=== PATIENT | female | born 1985 | race Caucasian/White ===

== ENCOUNTER 2020-06-07 14:24 | Emergency (ER) | payer BC, SELFPAY ==
[2020-06-07 15:23] VITALS: BP 133/81; PULSE 76; RESP 18; TEMP 36.8; O2SAT 100; BMI 32.2
--- NOTE | 2020-06-07 17:17 | ED.EYEPROB ---
HPI - Eye Problem General Chief complaint: Eye Problems Stated complaint: EYE ISSUE Time Seen by Provider: 06/07/20 17:04 Source: patient Mode of arrival: ambulatory History of Present Illness HPI Narrative: 35yo Female with no significant past medical history presenting to the ED c/o left eye erythema, pain, and drainage since last night. Admits to associated blurry vision. Denies known trauma/injury, or known foreign body. States [id number] was using spray paint down stairs and there is crack in wall so may or may not have gotten into eye. Denies visual loss, or contact use. Reports irrigated multiple times at home without relief chief complaint: eye pain and eye redness Related Data Previous Rx's Medication Instructions Recorded polymyxin B sulf-trimethoprim 1 drp OPHTHALMIC (EYE) QID 5 Days 06/07/20 [Polytrim] #10 ml Allergies Allergy/AdvReac Type Severity Reaction Status Date / Time No Known Allergies Allergy Verified 06/07/20 15:22 Review of Systems Review of Systems: Constitutional: No Weight loss, No Fever, No Chills Eyes: + Eye Pain, No Swelling, + Redness, No Foreign Body, + Discharge, + Vision Changes ENT/Mouth: No Nasal Congestion, No Sinus Pain,No sore throat, No Rhinorrhea Skin: No Skin Lesions, No rash Yes all other systems are reviewed and are negative Eyes: Eyes: Reports photophobia PMFSH Past Medical History Attestation statement: The following information was validated with the patient. Medical History (Updated 06/07/20 @ 17:51 by TODD Houser) No active medical problems Social History Social History Smoked in Last 30 Days: No Use of substances other than those prescribed or required for medical reasons: No Advance Directives: No Advance Directives Information Provided: No Physical Exam Vital Signs: Vital Signs: Last Vital Signs Temp 98.2 F 06/07/20 15:23 Pulse 76 06/07/20 15:23 Resp 18 06/07/20 15:23 BP 133/81 06/07/20 15:23 Pulse Ox 100 06/07/20 15:23 Body Mass Index 32.2 Const: General: cooperative and healthy appearing Orientation/consciousness: patient oriented x3 Limitations: no limitations HENMT: Head: Yes normal to inspection Ears: hearing grossly normal bilaterally General nose exam: Normal external nose present Face and sinus: Yes normal facial exam Eyes: Other: Visual acuity 20/70 with corrective lenses right eye. 20/15 with corrective lens left eye Small white foreign body removed with Q-tip from left eye. General: appearance normal, both eyes and all related structures Periorbital: periorbital findings normal Eyelids: Yes eyelids normal Conjunctivae: other (Injected. Slight green drainage) Corneas: corneas abnormal (+ centralized corneal abrasion noted on pupil) on the left and fluorescein used Pupils: Equal, round and reactive pupils present EOM: EOMs intact bilaterally Direct Ophthalmoscopy: photophobia Neck: Neck: Yes normal visual inspection and Yes no meningeal signs Resp: Effort & Inspection: normal respiratory effort Cardio: Rate: regular rate Skin: Rashes: no rashes Wounds: no wounds Neuro: General: patient oriented x3 and no meningeal signs Cranial nerves: Yes Equal, round and reactive pupils present Gait exam (Neuro): Normal gait present Extrem: General: Yes normal to inspection MDM - Eye Problem MDM Narrative Medical decision making narrative: On exam VSS, NAD/well-appearing fluorescein stain used with appreciable left-sided corneal abrasion. Pain resolved after tetracaine drops. Foreign body removed with Q-tip. Exam consistent with corneal abrasion/foreign body and ? Bacterial conjunctivitis Lower concern for allergic conjunctivitis/ chemical irritative conjunctivitis Discharge Plan Discharge Clinical Impression: Corneal abrasion Qualifiers: Encounter type: initial encounter Laterality: left Qualified Code(s): S05.02XA - Injury of conjunctiva and corneal abrasion without foreign body, left eye, initial encounter Patient Disposition: Home, Self-Care Instructions: Corneal Abrasion (ED) Additional Instructions: You have a scratch in her eye. Polytrim eyedrops are antibiotic drops, take as prescribed. You need to see an shoes hand sewer on Wednesday. If her symptoms persist or worsen, pain becomes unbearable, have any visual loss/worsening or new visual change return to the ED immediately Prescriptions: New polymyxin B sulf-trimethoprim [Polytrim] 10,000 unit- 1 mg/mL drops 1 drp ophthalmic (eye) QID 5 Days Qty: 10 RF: 0 Referrals: Nahun Cavazos [Physician] - 2 days Discharge Date/Time: 06/07/20 18:11
[2020-06-07] MEDS: Fluorescein Sodium STRIP 1 STRIP EYE-LEFT (17:30)
[2020-06-07] MEDS: Tetracaine HCl/PF 0.5% Oph Sol 4 ML DROPS 2 DROP EYE-LEFT (17:30)
== END 2020-06-07 18:11 | disposition home or self-care (01) ==
PROVIDERS: Emergency Provider Internal Medicine; PCP Physician Assistant Medical
DX: S05.02XA Injury of conjunctiva and corneal abrasion without foreign body, left eye, initial encounter (principal); X58.XXXA Exposure to other specified factors, initial encounter; Y93.9 Activity, unspecified; Y92.9 Unspecified place or not applicable; Y99.9 Unspecified external cause status
CPT/HCPCS: 99283

== ENCOUNTER 2020-06-08 08:16 | Emergency (ER) | payer BC, SELFPAY ==
[2020-06-08 08:19] VITALS: BP 122/75; PULSE 80; RESP 16; TEMP 36.8; O2SAT 100; BMI 32.2
--- NOTE | 2020-06-08 08:57 | ED.EYEPROB ---
HPI - Eye Problem General Chief complaint: Eye Problems Stated complaint: EYE ISSUE Time Seen by Provider: 06/08/20 08:56 Source: patient Mode of arrival: ambulatory Limitations: no limitations History of Present Illness MD chief complaint: eye pain and eye injury Onset (ago): day(s) (1) Onset description: sudden Duration: constant Location: left eye Eye Symptoms: burning, redness, pain and foreign body sensation Place: home Mechanism: direct trauma (wiped with wash cloth) Severity: moderate If Pain, Quality: sharp and burning Associated symptoms: none Treatments Prior to Arrival: other (just seen and dx with abrasion started on polymyxin drops without relief, feels there is FB in left lower part of eye) Related Data Previous Rx's Medication Instructions Recorded polymyxin B sulf-trimethoprim 1 drp OPHTHALMIC (EYE) QID 5 Days 06/07/20 [Polytrim] #10 ml erythromycin 0.5 inch OPHTHALMIC (EYE) TID 7 06/08/20 Days #3.5 g hydrocodone-acetaminophen 1 tab PO Q6H PRN #12 tab 06/08/20 Allergies Allergy/AdvReac Type Severity Reaction Status Date / Time No Known Allergies Allergy Verified 06/07/20 15:22 Review of Systems Review of Systems: Constitutional : No Fever, No Chills, ENT/Mouth : No sore throat, No Rhinorrhea Eyes: pos Eye Pain, No Swelling, pos Redness Cardiovascular : No Chest Pain, No SOB Respiratory : No Cough, No Sputum, No Wheezing PMFSH Past Medical History Attestation statement: The following information was validated with the patient. Medical History No active medical problems Social History Social History (Updated 06/08/20 @ 09:14 by Olga Miller DO) Smoking Status: Never smoker Physical Exam Vital Signs: Vital Signs: Last Vital Signs Temp 98.2 F 06/08/20 08:19 Pulse 80 06/08/20 08:19 Resp 16 06/08/20 08:19 BP 122/75 06/08/20 08:19 Pulse Ox 100 06/08/20 08:19 Body Mass Index 32.2 Appearance: Alert. Oriented X3. No acute distress. Eyes: Pupils equal, round and reactive to light. mild photophobia, L eye under tetracaine and fluorescein two large corneal abrasions superficial without FB one at 9 o clock and some overlying of pupil, one on left lower cornea no FB seen, no ciliary flush ENT: Pharynx normal. Neck: Normal inspection. Neck supple. CVS: Normal heart rate and rhythm. Pulses normal. Respiratory: No respiratory distress. Breath sounds normal. Abdomen: Soft and nontender. Skin: Skin warm and dry. Normal skin color. Normal skin turgor. Extremities: No lower extremity edema. No calf ttp Neuro: Oriented X 3. No motor deficit. No sensory deficit. MDM - Eye Problem MDM Narrative Medical decision making narrative: 35 yo female does not wear contacts here with L eye pain - due to wiping eye with face cloth, no FB seen has two large corneal abrasions on exam - will start on ointment and PO pain medications, refer to eye doctor Discharge Plan Discharge Clinical Impression: Corneal abrasion Qualifiers: Encounter type: initial encounter Laterality: left Qualified Code(s): S05.02XA - Injury of conjunctiva and corneal abrasion without foreign body, left eye, initial encounter Patient Disposition: Home, Self-Care Instructions: Corneal Abrasion (ED) Additional Instructions: return to ED for any worsening symptoms or concerns two abrasions were noted on exam SEE YOUR EYE DOCTOR THIS WEEK stop the polymyxin Prescriptions: New erythromycin 5 mg/gram (0.5 %) ointment 0.5 inch ophthalmic (eye) TID 7 Days Qty: 3.5 RF: 0 hydrocodone-acetaminophen 5-325 mg tablet 1 tab PO Q6H PRN (Reason: pain) Qty: 12 RF: 0 No Action polymyxin B sulf-trimethoprim [Polytrim] 10,000 unit- 1 mg/mL drops 1 drp ophthalmic (eye) QID 5 Days Qty: 10 RF: 0
[2020-06-08] MEDS: Tetracaine HCl/PF 0.5% Oph Sol 4 ML DROPS 3 DROP EYE-LEFT (09:06)
[2020-06-08] MEDS: Fluorescein Sodium STRIP 1 STRIP EYE-LEFT (09:06)
[2020-06-08] MEDS: Erythromycin Base 0.5% Oph Oin 1 GM TUBE 1 CM EYE-LEFT (09:14)
== END 2020-06-08 09:17 | disposition home or self-care (01) ==
LOC: HO.ED 09:16
PROVIDERS: Emergency Provider Emergency Medicine; PCP Physician Assistant Medical
DX: H57.12 Ocular pain, left eye (principal); Z79.899 Other long term (current) drug therapy
CPT/HCPCS: 99283

== ENCOUNTER 2020-09-06 11:51 | Emergency (ER) | payer BC, SELFPAY ==
--- NOTE | ~2020-09-06 | XR_ITS ---
EXAMINATION: XR CHEST CLINICAL INFORMATION: Chest pain COMPARISON: None TECHNIQUE: Frontal view of the chest was obtained. FINDINGS: No significant abnormality is noted involving the heart, lungs, mediastinum, bony thorax or soft tissues. XR/XR chest 1V IMPRESSION: Unremarkable chest examination.
[2020-09-06 12:02] VITALS: BP 145/84; PULSE 74; RESP 16; TEMP 36.9; O2SAT 100; BMI 32.2
--- NOTE | 2020-09-06 12:24 | ED_ITS ---
HPI - General Adult General Chief complaint: General Medical Stated complaint: CHEST DISCOMFORT Time Seen by Provider: 09/06/20 12:03 Source: patient Mode of arrival: ambulatory Limitations: no limitations History of Present Illness HPI narrative: 35 y/o female with no medical history presents to the ER from home with 9 days of left sided chest wall pain and soreness after she got her 1st COVID phizer vaccine 1.5 weeks ago. She states after the shot she had swollen lymph nodes, fatigue, mild headache and chest discomfort which she attributed to the vaccine. The other symptoms improved but the chest discomfort continued. It is worse with palpation and movement and mostly on the left side of her chest. No SOB or COLEMAN. This morning she reports new onset of RLE tingling that started when she woke up. She thought her foot was sleep. The tingling persisted for a few hours and then started to travel up her leg to now her right knee. She also reports some mild left hand tingling. She has no weakness, pain, numbness, difficulty ambulating or muscle cramping. She admits to feeling anxious after the tingling started but her anxiety was after the tingling started. MD complaint: chest pain & extremity tingling Onset (ago): hour(s) (6) Location: chest, left, right, upper extremity and lower extremity Radiation: proximal Severity: moderate Quality: aching Pain Consistency: intermittent Relieving factors: rest Exacerbating factors: movement Associated symptoms: chest pain Treatments prior to arrival: none Related Data Previous Rx's Medication Instructions Recorded polymyxin B sulf-trimethoprim 1 drp OPHTHALMIC (EYE) QID 5 Days 06/07/20 [Polytrim] #10 ml erythromycin 0.5 inch OPHTHALMIC (EYE) TID 7 06/08/20 Days #3.5 g hydrocodone-acetaminophen 1 tab PO Q6H PRN #12 tab 06/08/20 Allergies Allergy/AdvReac Type Severity Reaction Status Date / Time No Known Allergies Allergy Verified 06/07/20 15:22 Review of Systems Review of Systems: Constitutional: No Fever, No Chills ENT/Mouth: No sore throat, No Rhinorrhea, No Swallowing Difficulty Eyes: No Eye Pain, No Swelling, No Redness Cardiovascular: + Chest Pain, No SOB, No Orthopnea, No Edema Respiratory: No Cough, No Sputum, No Wheezing, No dyspnea Gastrointestinal: No Nausea, No Vomiting, No Diarrhea, No abdominal Pain Genitourinary: No Dysuria, No Urinary Frequency, No Hematuria Musculoskeletal: No joint pain, No Myalgias Skin: No Skin Lesions, No rash Neuro: No Weakness, No Numbness, No Dizziness, No Headache Psych: + Anxiety/Panic, No Depression Heme/Lymph: No Bruising, No Lymphadenopathy Endocrine: No Polyuria, No Polydipsia PMFSH Past Medical History Attestation statement: The following information was validated with the patient. Medical History No active medical problems Social History Social History (Updated 06/08/20 @ 09:14 by Olga Miller DO) Alcohol intake: never Smoking Status: Never smoker Use of substances other than those prescribed or required for medical reasons: No Advance Directives: No Advance Directives Information Provided: Yes Patient : No Physical Exam Vital Signs: Vital Signs: Last Vital Signs Temp 98.4 F 09/06/20 14:44 Pulse 72 09/06/20 14:44 Resp 16 09/06/20 14:44 BP 145/84 H 09/06/20 14:44 Pulse Ox 100 09/06/20 14:44 Body Mass Index 32.2 Appearance: Alert. Oriented X3. No acute distress. Eyes: Pupils equal, round and reactive to light. ENT: Pharynx normal. Neck: Normal inspection. Neck supple. CVS: Normal heart rate and rhythm. Pulses normal. Respiratory: No respiratory distress. Breath sounds normal. Skin: Skin warm and dry. Normal skin color. Normal skin turgor. No rashes. Extremities: No lower extremity edema. Non-tender LE. Neuro: Oriented X 3. No motor deficit. No sensory deficit. Steady gait. Normal DTR's bilaterally. Course Course Course Narrative: 35 y/o female presenting with 9 days of intermittent chest discomfort, worse with palpation, since she got the COVID vaccine 9 days ago. She also has new RLE and left hand tingling that started this morning. DTR's are intact, doubt [employer] Justice. Neuro exam is non-focal. Will check EKG, electrolytes and monitor closely. Reevaluation(s) Reevaluation #1: Lab workup is unremarkable. Tingling has not worsened. No weakness or numbness. Gait is steady. She appears well. She is stable for d/c with plan to f/u with PCP next week. She was counseled to return to the ER if her symptoms worsen or if she develops any numbness or weakness. Stable for d/c. Medical Decision Making Lab Data Result diagrams: 09/06/20 13:09 09/06/20 13:09 Labs: Lab Results 09/06/20 09/06/20 09/06/20 Range/Units 13:08 13:08 13:08 WBC (4.8-10.8) X10*3/uL RBC (4.20-5.50) X10*6/uL Hgb (12.0-16.0) g/dl Hct (37-47) % MCV (80-98) fL MCH (27.0-33.0) pg MCHC (31.0-35.0) g/dl RDW (11.0-16.0) % Plt Count (160-400) X10*3/uL MPV (9.4-12.3) fL Immature Gran % (Auto) (0.0-0.4) % Neut % (Auto) (45-73) % Lymph % (Auto) (20-40) % Barton % (Auto) (2-11) % Eos % (Auto) (0-4) % Baso % (Auto) (0-2) % Lymph # (Auto) (1.2-4.9) X10*3/uL Barton # (Auto) (0.1-1.2) X10*3/uL Eos # (Auto) (0.0-0.4) X10*3/uL Baso # (Auto) (0.0-0.2) X10*3/uL Abs Immat Gran (auto) (0.00-0.03) X10*3/uL Absolute Neuts (auto) (2.0-8.3) X10*3/uL Absolute Nucleated RBC (0.0-0.012) X10*3/uL Nucleated RBC % (auto) (0.0-0.2) /100WBC Hold Blue Top Sodium (135-145) mmol/L Potassium (3.3-5.1) mmol/L Chloride (96-108) mmol/L Carbon Dioxide (22-29) mmol/L Anion Gap (12-20) BUN (9-16) mg/dL Creatinine (0.5-1.4) mg/dL Estim Creat Clear Calc Estimated GFR Random Glucose (60-115) mg/dL Calcium (8.4-10.2) mg/dL Magnesium 1.9 (1.6-2.6) mg/dL Troponin I High Sens < 3.5 (<3.5-17.0) ng/L TSH 1.44 (0.32-4.0) uIU/mL 09/06/20 09/06/20 09/06/20 Range/Units 13:09 13:09 13:09 WBC 8.5 (4.8-10.8) X10*3/uL RBC 4.23 (4.20-5.50) X10*6/uL Hgb 13.5 (12.0-16.0) g/dl Hct 40.4 (37-47) % MCV 95.5 (80-98) fL MCH 31.9 (27.0-33.0) pg MCHC 33.4 (31.0-35.0) g/dl RDW 12.1 (11.0-16.0) % Plt Count 264 (160-400) X10*3/uL MPV 8.7 L (9.4-12.3) fL Immature Gran % (Auto) 0.2 (0.0-0.4) % Neut % (Auto) 70.9 (45-73) % Lymph % (Auto) 20.8 (20-40) % Barton % (Auto) 5.3 (2-11) % Eos % (Auto) 2.2 (0-4) % Baso % (Auto) 0.6 (0-2) % Lymph # (Auto) 1.8 (1.2-4.9) X10*3/uL Barton # (Auto) 0.5 (0.1-1.2) X10*3/uL Eos # (Auto) 0.2 (0.0-0.4) X10*3/uL Baso # (Auto) 0.1 (0.0-0.2) X10*3/uL Abs Immat Gran (auto) 0.02 (0.00-0.03) X10*3/uL Absolute Neuts (auto) 6.0 (2.0-8.3) X10*3/uL Absolute Nucleated RBC 0.000 (0.0-0.012) X10*3/uL Nucleated RBC % (auto) 0.0 (0.0-0.2) /100WBC Hold Blue Top SEE NOTE Sodium 141 (135-145) mmol/L Potassium 3.7 (3.3-5.1) mmol/L Chloride 105 (96-108) mmol/L Carbon Dioxide 24 (22-29) mmol/L Anion Gap 16 (12-20) BUN 18 H (9-16) mg/dL Creatinine 0.73 (0.5-1.4) mg/dL Estim Creat Clear Calc 97.2 Estimated GFR > 60 Random Glucose 89 (60-115) mg/dL Calcium 9.8 (8.4-10.2) mg/dL Magnesium (1.6-2.6) mg/dL Troponin I High Sens (<3.5-17.0) ng/L TSH (0.32-4.0) uIU/mL ECG Data Attestation: I personally reviewed and interpreted this ECG as follows: Interpretation: sinus bradycardia, HR 59 bpm, normal MT interval, normal QTc Critical Care Time Critical Care Time Critical Care Time: No Discharge Plan Discharge Clinical Impression: Chest wall pain Patient Disposition: Home, Self-Care Instructions: Paresthesia (ED), Chest Wall Pain (ED) Additional Instructions: Your lab workup today was unremarkable. Your EKG was normal. Your chest pain is likely muscular. Recommend trial of NSAID like ibuprofen, Advil, Aleve, Motrin. If the tingling in your leg and hand get worse or if you develop numbness or weakness come back to the ER for further evaluation. Follow up with your doctor next week. Prescriptions: No Action erythromycin 5 mg/gram (0.5 %) ointment 0.5 inch ophthalmic (eye) TID 7 Days Qty: 3.5 RF: 0 hydrocodone-acetaminophen 5-325 mg tablet 1 tab PO Q6H PRN (Reason: pain) Qty: 12 RF: 0 polymyxin B sulf-trimethoprim [Polytrim] 10,000 unit- 1 mg/mL drops 1 drp ophthalmic (eye) QID 5 Days Qty: 10 RF: 0 Interventions: ED Discharge Assessment Last Done: 09/06/20 14:46 Discharge Date/Time: 09/06/20 14:48
--- NOTE | 2020-09-06 12:32 | ECG_ITS ---
Test Reason : CHEST PRESSURE Blood Pressure : / mmHG Vent. Rate : 059 BPM Atrial Rate : 059 BPM P-R Int : 144 ms QRS Dur : 084 ms QT Int : 414 ms P-R-T Axes : 039 041 027 degrees QTc Int : 409 ms Sinus bradycardia Otherwise normal ECG No previous ECGs available Referred By: Jemma Yi Electronically Signed By:FIDELINA DE SOUZA
[2020-09-06 13:14] LABS: MANUAL DIFF FLAG NO
[2020-09-06 13:15] LABS: Basophils Absolute Auto 0.1 X10*3/uL (0.0-0.2); Basophils Percent Auto 0.6 % (0-2); Eosinophils Absolute Auto 0.2 X10*3/uL (0.0-0.4); Eosinophils Percent Auto 2.2 % (0-4); Hematocrit 40.4 % (37-47); Hemoglobin 13.5 g/dl (12.0-16.0); Imm Gran Abs Auto 0.02 X10*3/uL (0.00-0.03); Imm Gran Pct Auto 0.2 % (0.0-0.4); Lymphocytes Absolute Auto 1.8 X10*3/uL (1.2-4.9); Lymphocytes Percent Auto 20.8 % (20-40); Mean Corpuscular HGB Conc 33.4 g/dl (31.0-35.0); Mean Corpuscular Hemoglobin 31.9 pg (27.0-33.0); Mean Corpuscular Volume 95.5 fL (80-98); Mean Platelet Volume 8.7 fL (9.4-12.3); Monocytes Absolute Auto 0.5 X10*3/uL (0.1-1.2); Monocytes Percent Auto 5.3 % (2-11); Neutrophils Percent Auto 70.9 % (45-73); Platelet Count 264 X10*3/uL (160-400); Red Blood Count 4.23 X10*6/uL (4.20-5.50); Red Cell Distribution Width 12.1 % (11.0-16.0); White Blood Count 8.5 X10*3/uL (4.8-10.8)
[2020-09-06 13:44] LABS: Anion Gap 16 (12-20); Blood Urea Nitrogen 18 mg/dL (9-16); Calcium 9.8 mg/dL (8.4-10.2); Carbon Dioxide 24 mmol/L (22-29); Chloride 105 mmol/L (96-108); Creatinine Clr Calc Pharmacy 97.2; Estimated Glomerular Filt Rate > 60; Glucose Random 89 mg/dL (60-115); Potassium 3.7 mmol/L (3.3-5.1); Sodium 141 mmol/L (135-145)
[2020-09-06 13:46] LABS: Magnesium 1.9 mg/dL (1.6-2.6)
[2020-09-06 13:55] LABS: Troponin-I High Sensitivity < 3.5 ng/L (<3.5-17.0)
[2020-09-06 14:08] LABS: TSH reflex Free T4 1.44 uIU/mL (0.32-4.0)
[2020-09-06 14:44] VITALS: BP 145/84; PULSE 72; RESP 16; TEMP 36.9; O2SAT 100
== END 2020-09-06 14:48 | disposition home or self-care (01) ==
PROVIDERS: Physician Assistant; Emergency Provider Emergency Medicine
DX: R07.89 Other chest pain (principal); F41.9 Anxiety disorder, unspecified
CPT/HCPCS: 36415; 71045; 80048; 83735; 84443; 84484; 85025; 93005; 99283; 99284

== ENCOUNTER 2022-10-29 07:00 | Outpatient (RCR) | payer BC, SELFPAY | END 2022-11-16 08:52 | disposition home or self-care (01) | LOC: HO.PT 07:00 | PROVIDERS: Visit Provider Family Medicine | DX: M25.561 Pain in right knee (principal) | CPT/HCPCS: 97033; 97110; 97140; 97161; 97530 ==

== ENCOUNTER 2024-11-21 12:31 | Emergency (ER) | payer BC, SELFPAY ==
--- NOTE | ~2024-11-21 | US_ITS ---
CLINICAL HISTORY: left ovarian cyst ? torsion US pelvis transabdominal and transvaginal with Doppler Comparison: CT/OH/SR - CT ABDOMEN PELVIS WITHOUT IV CONTRAST - 11/21/24 14:48 EDT Findings: Transabdominal scanning performed for overall anatomy. Transvaginal scanning performed for additional detail. Anteverted uterus is 8.2 cm length. Normal myometrium. Endometrium 9 mm thickness. Right ovary 2.0 x 1.1 x 1.8 cm. Left ovary 5.5 x 3.0 x 3.8 cm. 2 hemorrhagic cysts measuring up to 3.3 cm. Normal color Doppler with arterial/venous spectral tracing of both ovaries. Trace free fluid. IMPRESSION: Two hemorrhagic cysts in the left ovary measuring up to 3.3 cm. No evidence of torsion. This document has been electronically signed by: Gabrielle Carranza MD on 11/21/2024 18:16:19
--- NOTE | ~2024-11-21 | US_ITS ---
CLINICAL HISTORY: left ovarian cyst ? torsion US pelvis transabdominal and transvaginal with Doppler Comparison: CT/NC/SR - CT ABDOMEN PELVIS WITHOUT IV CONTRAST - 11/21/24 14:48 EDT Findings: Transabdominal scanning performed for overall anatomy. Transvaginal scanning performed for additional detail. Anteverted uterus is 8.2 cm length. Normal myometrium. Endometrium 9 mm thickness. Right ovary 2.0 x 1.1 x 1.8 cm. Left ovary 5.5 x 3.0 x 3.8 cm. 2 hemorrhagic cysts measuring up to 3.3 cm. Normal color Doppler with arterial/venous spectral tracing of both ovaries. Trace free fluid. IMPRESSION: Two hemorrhagic cysts in the left ovary measuring up to 3.3 cm. No evidence of torsion. This document has been electronically signed by: Gabrielle Carranza MD on 11/21/2024 18:16:19
--- NOTE | ~2024-11-21 | CT_ITS ---
EXAMINATION: CT ABDOMEN AND PELVIS WITHOUT CONTRAST CLINICAL INFORMATION: Left-sided abdominal pain DLP: 655 mGY*cm COMPARISON: October 04, 2016 TECHNIQUE: Multidetector volumetric imaging was performed from the superior aspect of the liver through the pubic symphysis. Sagittal and coronal reformatted images were obtained on the technologist's workstation. This CT examination was performed using dose optimization techniques as appropriate, variously including the following: *Automated exposure control *Adjustment of mA and/or kV according to patient size (this includes techniques or standardized protocols for targeted exams where dose is matched to indication/reason for exam; i.e. extremities or head) *Use of iterative reconstruction technique FINDINGS: LUNG BASES: Axial series #4 Image [id number]/[id number]: 3 mm subpleural pulmonary nodule in the inferior lingular segment of the left lung is stable. Image [id number]: 3mm solid pulmonary nodule in the anteromedial left lower lobe is unchanged. No further workup is indicated per Fleischner Society recommendations. LIVER, GALLBLADDER, AND BILIARY TREE: 5 x 8 mm hypodensity in the posterior inferior right hepatic lobe measures 5 x 8 mm and is too small to characterize. The liver is normal in size, shape, and attenuation. No focal hepatic lesion or biliary ductal dilatation is present. The gallbladder is unremarkable with no evidence of radiopaque gallstones, gallbladder wall thickening, or obvious pericholecystic inflammatory changes. PANCREAS: Unremarkable. SPLEEN: Unremarkable. ADRENAL GLANDS: Unremarkable. KIDNEYS AND URETERS: The kidneys are normal in size, shape, and attenuation. No hydronephrosis, hydroureter, or calculi seen. No perinephric stranding. BLADDER: Unremarkable. GASTROINTESTINAL TRACT: The small and large bowel are unremarkable. The appendix is unremarkable. ABDOMINAL WALL: No significant hernia is appreciated. LYMPH NODES: Normal. VASCULAR: Unremarkable. PELVIC VISCERA: There is a left ovarian cyst with a thin internal septation that measures 3.0 x 5.0 cm. Uterus and right ovary are unremarkable. OSSEOUS STRUCTURES: Unremarkable. CT/CT abdomen pelvis wo IV con IMPRESSION: Cyst with indeterminate characteristics: 5 cm left ovarian cyst with a thin internal septation. Follow-up with transabdominal and transvaginal ultrasound in 6-12 weeks. There are two 3 mm solid pulmonary nodules in the left lung requiring no further workup. They are stable compared with an examination performed in 2017. Fleischner guidelines were followed. Electronically signed by: Severino Sosa MD 11/21/2024 03:20 PM EDT RP
[2024-11-21 12:45] VITALS: BP 117/81; PULSE 80; RESP 16; TEMP 36.9; O2SAT 98; BMI 34.5
--- NOTE | 2024-11-21 12:48 | ED.GENADULT ---
HPI - General Adult General Chief complaint: Abdominal Pain Stated complaint: left abd pain Time Seen by Provider: 11/21/24 14:42 Source: patient Mode of arrival: ambulatory Limitations: no limitations History of Present Illness HPI narrative: This is a 39 years old female presented to the emergency department with a chief complaint of left side abdominal pain x1 day. She was started on GLP1 meds 1 week ago. Onset (ago): week(s) (1) Location: abdomen Radiation: non-radiation Severity: moderate Quality: burning Pain Consistency: constant Relieving factors: none Exacerbating factors: none Associated symptoms: denies other symptoms Related Data Previous Rx's ?Medication ?Instructions ?Recorded polymyxin B sulfate 10,000 1 drp ophthalmic (eye) QID 5 days 06/07/20 unit-trimethoprim 1 mg/mL eye #10 mL drops (Polytrim) erythromycin 5 mg/gram (0.5 %) eye 0.5 inch ophthalmic (eye) TID 7 06/08/20 ointment days #3.5 grams hydrocodone 5 mg-acetaminophen 325 1 tab PO Q6H PRN pain #12 tabs 06/08/20 mg tablet Allergies Allergy/AdvReac Type Severity Reaction Status Date / Time No Known Allergies Allergy Verified 11/21/24 12:48 Review of Systems Constitutional: Constitutional: Reports no additional constitutional complaints Cardiovascular: Cardiovascular: Reports no additional cardiovascular complaints [facility] Past Medical History Attestation statement: The following information was validated with the patient. [facility] Narrative: Patient denies any major medical problems she just started Wegovy for weight loss Medical History No active medical problems Social History Social History Alcohol intake: never Smoked in Last 30 Days: No Use of substances other than those prescribed or required for medical reasons: No Advance Directives: No Advance Directives Information Provided: No Do you have a plan to hurt others: No Plan Patient : No Physical Exam ED Exam Exam: Patient looks well she is not toxic-appearing Vital Signs: Vital Signs - 24 hr 11/21/24 12:45 11/21/24 14:48 11/21/24 16:04 Temperature 98.4 F Pulse Rate 80 77 72 Respiratory Rate 16 18 18 Blood Pressure 117/81 113/82 123/80 Pulse Oximetry 98 99 99 Oxygen Delivery Method Room Air Room Air Room Air 11/21/24 17:41 11/21/24 18:04 Temperature 98.0 F 98.0 F Pulse Rate 78 78 Respiratory Rate 16 16 Blood Pressure 125/77 125/77 Pulse Oximetry 99 99 Oxygen Delivery Method Room Air Room Air BMI result Body Mass Index 34.5 Const General: cooperative Nutritional Appearance: average body habitus Orientation/consciousness: patient oriented x3 Limitations: no limitations HENMT Head: Yes normal to inspection General nose exam: Normal external nose present Face and sinus: Yes normal facial exam Neck Neck: Yes normal visual inspection Chest Chest palpation & inspection: normal inspection of the chest Resp Effort & Inspection: normal respiratory effort Auscultation: clear to auscultation bilaterally Cardio Jugular venous distension: no JVD Rate: regular rate Rhythm: regular rhythm GI Other: Tenderness in the left side of the abdomen no guarding no rebound Palpation (GI): Soft to palpation, not firm, nontender and no guarding Skin General skin exam: no rashes or lesions noted Lesions: no lesions Neuro General: patient oriented x3 Course Course Course Narrative: RME: 39 yold female presents to the ED for left lower quadrant abdominal pain since this morning without any symptoms or diarrhea. positive for left lower quadrant tenderneess. labs ordered Reevaluation(s) Reevaluation #1: CT scan showed a left ovarian cyst we will do US to r/o torsion Time: 16:56 Reevaluation #2: 17:00: I took over the care of this patient she was pending a pelvic ultrasound after identification of the large ovarian cyst on CT. Patient is non . Afebrile, no leukocytosis normal reassuring CBC and chemistry tests. CT with no other acute findings. Christo Herrera MD 17:33 Ultrasound reveals complex right ovarian cyst small pelvic free fluid. Thickened endometrium. No acute emergent actionable findings to indicate an emergent OBGYN consultation the patient should call school janitor 1st thing in the morning to discuss follow up. There was no sign of torsion though she does have risk and I have instructed her to look out for signs and symptoms of this. Christo Herrera MD Medical Decision Making Medical Decision Making MDM Narrative: Patient is here with left-sided abdominal pain we will obtain labs UA imaging 16:56 CT showed no bowel pathology left ovarian cyst we will order ultrasound to rule out torsion Differential Diagnosis Differential Diagnoses: The differential diagnosis associated with the presentation includes Kidney stone/colitis/diverticulitis Admission/Observation Consideration of admission/observation: Escalation of care including admission/observation considered Lab Data [facility] Lab Attestation statement: I reviewed the patient's lab results. 11/21/24 12:59 11/21/24 12:59 Labs: Lab Results 11/21/24 Range/Units 12:59 WBC 10.0 (4.8-10.8) X10*3/uL RBC 4.43 (4.20-5.50) X10*6/uL Hgb 14.0 (12.0-16.0) g/dl Hct 40.4 (37.0-47.0) % MCV 91.2 (80.0-98.0) fL MCH 31.6 (27.0-33.0) pg MCHC 34.7 (31.0-35.0) g/dl RDW 12.6 (11.0-16.0) % Plt Count 260 (160-400) X10*3/uL MPV 9.6 (9.4-12.3) fL Immature Gran % (Auto) 0.3 (0.0-0.4) % Neut % (Auto) 69.5 (45-73) % Lymph % (Auto) 21.0 (20-40) % [place] % (Auto) 5.9 (2-11) % Eos % (Auto) 2.7 (0-4) % Baso % (Auto) 0.6 (0-2) % Lymph # (Auto) 2.1 (1.2-4.9) X10*3/uL [place] # (Auto) 0.6 (0.1-1.2) X10*3/uL Eos # (Auto) 0.3 (0.0-0.4) X10*3/uL Baso # (Auto) 0.1 (0.0-0.2) X10*3/uL Abs Immat Gran (auto) 0.03 (0.00-0.03) X10*3/uL Absolute Neuts (auto) 6.9 (2.0-8.3) x10*3/uL Absolute Nucleated RBC 0.000 (0.0-0.012) X10*3/uL Nucleated RBC % (auto) 0.0 (0.0-0.2) /100WBC Sodium 141 (135-145) mmol/L Potassium 3.7 (3.3-5.1) mmol/L Chloride 108 (96-108) mmol/L Carbon Dioxide 23 (22-29) mmol/L Anion Gap 14 (12-20) BUN 14 (9-16) mg/dL Creatinine 0.68 (0.5-1.4) mg/dL Estim Creat Clear Calc 104.0 Estimated GFR > 60 Random Glucose 91 (60-115) mg/dL Calcium 9.5 (8.4-10.2) mg/dL Total Bilirubin 0.3 (0.0-1.0) mg/dL AST 18 (5-31) U/L ALT 16 (0-31) U/L Alkaline Phosphatase 62 (39-117) U/L Total Protein 7.5 (6.5-8.0) g/dL Albumin 4.8 (3.5-5.0) g/dL Lipase 31 (8-78) U/L Beta HCG, Quant < 2 mIU/mL Urine Color Yellow Urine Appearance Clear Urine pH 6.0 (5.0-9.0) Ur Specific [place] 1.010 (1.005-1.025) Urine Protein Negative (Neg-Trace) mg/dL Urine Glucose (UA) Negative (Negative) mg/dL Urine Ketones Negative (Negative) mg/dL Urine Blood Negative (Negative) Urine Nitrite Negative (Negative) Ur Leukocyte Esterase Negative (Negative) Independent Interpretation I performed an independent interpretation of an: CT Scan Radiology Impression Discussion of test interpretation with radiology: I have reviewed the radiologist's reading. Radiologist Impression: rge bowel are unremarkable. The appendix is unremarkable. ABDOMINAL WALL: No significant hernia is appreciated. LYMPH NODES: Normal. VASCULAR: Unremarkable. PELVIC VISCERA: There is a left ovarian cyst with a thin internal septation that measures 3.0 x 5.0 cm. Uterus and right ovary are unremarkable. OSSEOUS STRUCTURES: Unremarkable. CT/CT abdomen pelvis wo IV con IMPRESSION: Cyst with indeterminate characteristics: 5 cm left ovarian cyst with a thin internal septation. Follow-up with transabdominal and transvaginal ultrasound in 6-12 weeks. There are two 3 mm solid pulmonary nodules in the left lung requiring no further workup. They are stable compared with an examination performed in 2017. Fleischner guidelines were followed. Electronically signed by: Severino Sosa MD 11/21/2024 03:20 PM EDT RP Discharge Plan Discharge Clinical Impression: Ovarian cyst Patient Disposition: Home, Self-Care Instructions: Ovarian Cyst (ED) Additional Instructions: Follow-up with your own OBGYN return if worse reviewed arrived an OBGYN that he could Dr Garcia see number below Call OBGYN 1st thing in the morning. Discussed follow up. If you develop severe or sudden pain this may indicate ovarian threatening condition called ovarian torsion return back to 4 evaluation. Prescriptions: No Action erythromycin 5 mg/gram (0.5 %) ointment 0.5 inch ophthalmic (eye) TID 7 Days Qty: 3.5 0RF hydrocodone-acetaminophen 5-325 mg tablet 1 tab PO Q6H PRN (Reason: pain) Qty: 12 0RF polymyxin B sulf-trimethoprim [Polytrim] 10,000 unit- 1 mg/mL drops 1 drp ophthalmic (eye) QID 5 Days Qty: 10 0RF Rx Instructions: while awake; do not exceed 6 doses in 24 hours Referrals: Edmund Garcia MD [Physician, SCHOOL ADMISSIONS REPRESENTATIVE] - 11/28/24 Interventions: ED Discharge Assessment Last Done: 11/21/24 18:04 Discharge Date/Time: 11/21/24 18:05 Print Language: Serbian
[2024-11-21 13:09] LABS: Appearance Urine Clear; Glucose Urine UA Negative (Negative); PH 6.0 (5.0-9.0); Specific Gravity - Urine 1.010 (1.005-1.025)
[2024-11-21 13:11] LABS: Hematocrit 40.4 % (37.0-47.0); Hemoglobin 14.0 g/dl (12.0-16.0); Imm Gran Abs Auto 0.03 X10*3/uL (0.00-0.03); Imm Gran Pct Auto 0.3 % (0.0-0.4); Lymphocytes Absolute Auto 2.1 X10*3/uL (1.2-4.9); Mean Corpuscular HGB Conc 34.7 g/dl (31.0-35.0); Mean Corpuscular Hemoglobin 31.6 pg (27.0-33.0); Mean Corpuscular Volume 91.2 fL (80.0-98.0); NRBC Abs Auto 0.000 X10*3/uL (0.0-0.012); NRBC Pct Auto 0.0 /100WBC (0.0-0.2); Red Blood Count 4.43 X10*6/uL (4.20-5.50)
[2024-11-21 13:12] LABS: Platelet Count 260 X10*3/uL (160-400); White Blood Count 10.0 X10*3/uL (4.8-10.8)
[2024-11-21 13:20] LABS: Anion Gap 14 (12-20)
[2024-11-21 13:50] LABS: Alanine Aminotransferase 16 U/L (0-31); Albumin Level 4.8 g/dL (3.5-5.0); Alkaline Phosphatase 62 U/L (39-117); Aspartate Amino Transferase 18 U/L (5-31); Blood Urea Nitrogen 14 mg/dL (9-16); Calcium 9.5 mg/dL (8.4-10.2); Carbon Dioxide 23 mmol/L (22-29); Chloride 108 mmol/L (96-108); Creatinine Clr Calc Pharmacy 104.0; Estimated Glomerular Filt Rate > 60; Lipase 31 U/L (8-78); Potassium 3.7 mmol/L (3.3-5.1); Sodium 141 mmol/L (135-145); Total Protein 7.5 g/dL (6.5-8.0)
--- NOTE | 2024-11-21 14:47 | ED_ITS ---
HPI - Abdominal Pain General Chief Complaint: Abdominal Pain Stated Complaint: left abd pain Time Seen by Provider: 11/21/24 14:42 Related Data Previous Rx's ?Medication ?Instructions ?Recorded polymyxin B sulfate 10,000 1 drp ophthalmic (eye) QID 5 days 06/07/20 unit-trimethoprim 1 mg/mL eye #10 mL drops (Polytrim) erythromycin 5 mg/gram (0.5 %) eye 0.5 inch ophthalmic (eye) TID 7 06/08/20 ointment days #3.5 grams hydrocodone 5 mg-acetaminophen 325 1 tab PO Q6H PRN pa in #12 tabs 06/08/20 mg tablet Allergies Allergy/AdvReac Type Severity Reaction Status Date / Time No Known Allergies Allergy Verified 11/21/24 12:48 [facility] Past Medical History Medical History No active medical problems Social History Social History Alcohol intake: never Smoked in Last 30 Days: No Use of substances other than those prescribed or required for medical reasons: No Advance Directives: No Advance Directives Information Provided: No Do you have a plan to hurt others: No Plan Patient : No Physical Exam ED Vital Signs: Vital Signs - 24 hr 11/21/24 12:45 11/21/24 14:48 11/21/24 16:04 Temperature 98.4 F Pulse Rate 80 77 72 Respiratory Rate 16 18 18 Blood Pressure 117/81 113/82 123/80 Pulse Oximetry 98 99 99 Oxygen Delivery Method Room Air Room Air Room Air BMI result Body Mass Index 34.5 Course Reevaluation(s) Reevaluation #1: 16:28 CT scan resulted no bowel pathology she does have a cyst in the left ovary will do US to r/o torsion. Time: 16:30 Medical Decision Making Lab Data 11/21/24 12:59 11/21/24 12:59 Labs: Lab Results 11/21/24 Range/Units 12:59 WBC 10.0 (4.8-10.8) X10*3/uL RBC 4.43 (4.20-5.50) X10*6/uL Hgb 14.0 (12.0-16.0) g/dl Hct 40.4 (37.0-47.0) % MCV 91.2 (80.0-98.0) fL MCH 31.6 (27.0-33.0) pg MCHC 34.7 (31.0-35.0) g/dl RDW 12.6 (11.0-16.0) % Plt Count 260 (160-400) X10*3/uL MPV 9.6 (9.4-12.3) fL Immature Gran % (Auto) 0.3 (0.0-0.4) % Neut % (Auto) 69.5 (45-73) % Lymph % (Auto) 21.0 (20-40) % [place] % (Auto) 5.9 (2-11) % Eos % (Auto) 2.7 (0-4) % Baso % (Auto) 0.6 (0-2) % Lymph # (Auto) 2.1 (1.2-4.9) X10*3/uL [place] # (Auto) 0.6 (0.1-1.2) X10*3/uL Eos # (Auto) 0.3 (0.0-0.4) X10*3/uL Baso # (Auto) 0.1 (0.0-0.2) X10*3/uL Abs Immat Gran (auto) 0.03 (0.00-0.03) X10*3/uL Absolute Neuts (auto) 6.9 (2.0-8.3) x10*3/uL Absolute Nucleated RBC 0.000 (0.0-0.012) X10*3/uL Nucleated RBC % (auto) 0.0 (0.0-0.2) /100WBC Sodium 141 (135-145) mmol/L Potassium 3.7 (3.3-5.1) mmol/L Chloride 108 (96-108) mmol/L Carbon Dioxide 23 (22-29) mmol/L Anion Gap 14 (12-20) BUN 14 (9-16) mg/dL Creatinine 0.68 (0.5-1.4) mg/dL Estim Creat Clear Calc 104.0 Estimated GFR > 60 Random Glucose 91 (60-115) mg/dL Calcium 9.5 (8.4-10.2) mg/dL Total Bilirubin 0.3 (0.0-1.0) mg/dL AST 18 (5-31) U/L ALT 16 (0-31) U/L Alkaline Phosphatase 62 (39-117) U/L Total Protein 7.5 (6.5-8.0) g/dL Albumin 4.8 (3.5-5.0) g/dL Lipase 31 (8-78) U/L Beta HCG, Quant < 2 mIU/mL Urine Color Yellow Urine Appearance Clear Urine pH 6.0 (5.0-9.0) Ur Specific [place] 1.010 (1.005-1.025) Urine Protein Negative (Neg-Trace) mg/dL Urine Glucose (UA) Negative (Negative) mg/dL Urine Ketones Negative (Negative) mg/dL Urine Blood Negative (Negative) Urine Nitrite Negative (Negative) Ur Leukocyte Esterase Negative (Negative) Discharge Plan Discharge Prescriptions: No Action erythromycin 5 mg/gram (0.5 %) ointment 0.5 inch ophthalmic (eye) TID 7 Days Qty: 3.5 0RF hydrocodone-acetaminophen 5-325 mg tablet 1 tab PO Q6H PRN (Reason: pain) Qty: 12 0RF polymyxin B sulf-trimethoprim [Polytrim] 10,000 unit- 1 mg/mL drops 1 drp ophthalmic (eye) QID 5 Days Qty: 10 0RF Rx Instructions: while awake; do not exceed 6 doses in 24 hours Print Language: Slovenian
[2024-11-21 14:48] VITALS: BP 113/82; PULSE 77; RESP 18; O2SAT 99
[2024-11-21 16:04] VITALS: BP 123/80; PULSE 72; RESP 18; O2SAT 99
[2024-11-21 17:41] VITALS: BP 125/77; PULSE 78; RESP 16; TEMP 36.7; O2SAT 99
[2024-11-21 18:04] VITALS: BP 125/77; PULSE 78; RESP 16; TEMP 36.7; O2SAT 99
== END 2024-11-21 18:05 | disposition home or self-care (01) ==
PROVIDERS: Physician Assistant; Emergency Provider Emergency Medicine; PCP Physician Assistant Medical
DX: N83.202 Unspecified ovarian cyst, left side (principal); R10.32 Left lower quadrant pain
CPT/HCPCS: 36415; 74176; 76830; 76856; 80053; 81003; 83690; 84702; 85025; 93975; 99284

== ENCOUNTER → 2024-11-21 14:46 | Outpatient (BNV) | payer BC, SELFPAY | PROVIDERS: Emergency Provider Emergency Medicine; PCP Physician Assistant Medical; Visit Provider Radiology Diagnostic Radiology | DX: R10.32 Left lower quadrant pain (principal) | CPT/HCPCS: 76830; 76856 ==